=== PATIENT | female | born 1940 | race Caucasian/White ===

== ENCOUNTER → 2017-10-28 | Emergency (ER) | payer BC ==
[~2017-10-28] VITALS: Ht 160 cm; Wt 73.9 kg
[~2017-10-28] MED LIST: AMLODIPINE BESY10 MG PO; AUGMENTIN 875-1 EACH PO; BP MED; CARVEDILOL3.125 MG PO; DOXAZOSIN MESYLA1 MG PO; ESGIC 50-325-41 EACH PO; EVOXAC30 MG PO; NEXIUM 24HR20 M1 PO; NEXIUM20 MG PO; PERCOCET 5-3251 EACH PO; POTASSIUM CHLO10 MEQ PO; PRILOSEC20 MG PO; TRAMADOL HCL50 MG PO; TRIAMTERENE-HC1 EAC1 PO
--- NOTE | 2017-10-28 13:38 | EKG ---
[facility] [address] [facility] [place] [address] Signed Normal sinus rhythm Normal ECG No previous ECGs available Confirmed by YAN JOHNSON MD ([id number]) on 10/28/2017 1:38:35 PM Electronically Signed By: YAN JOHNSON MD 10/28/17 1338 PATIENT NAME: ADELSO GREER Electrocardiogram DATE OF : 44 PHYSICIAN: YAN JOHNSON MD REPORT #: [id number] REPORT IS CONFIDENTIAL AND NOT TO BE RELEASED WITHOUT AUTHORIZATION
== END ==
LOC: ED 05:20
DX: R07.2 Precordial pain (principal); R10.13 Epigastric pain; E87.6 Hypokalemia; I10 Essential (primary) hypertension; K21.9 Gastro-esophageal reflux disease without esophagitis; Z88.8 Allergy status to other drugs, medicaments and biological substances; Z79.899 Other long term (current) drug therapy; Z79.891 Long term (current) use of opiate analgesic
CPT/HCPCS: 71010; 80053; 81001; 82550; 82553; 83874; 84484; 85025; 85610; 85730; 93005; 93010; 96361; 96374; 99284; J7030

== ENCOUNTER 2018-04-29 12:00 | Day surgery (SDC) | payer BC ==
[~2018-04-29] VITALS: Ht 157.5 cm; Wt 76.2 kg
--- NOTE | ~2018-04-29 | OR ---
[facility] [address] [place], [place] [address] Draft DATE OF OPERATION: 04/29/2018 SURGEON: Ritchie Marr MD PREOPERATIVE DIAGNOSES: 1. History of tubular adenoma, 2015. 2. Dark stool without overt bleeding. POSTOPERATIVE DIAGNOSIS: 1. Sigmoid diverticulosis. 2. Polyp at 20 cm (excised). PROCEDURE: Total colonoscopy to cecum with snare polypectomy x1. ANESTHESIA: Intravenous sedation, fentanyl 150 mcg, Versed 7 mg. INDICATION: This 77-year-old white woman is a patient Dr. Tracey Warren. She is known to me from the past. She has undergone colonoscopy in 2014, at which time she was found to have a tubular adenoma. She is recently considered to have "black stool," as well as left lower abdominal pain. She was empirically treated with Flagyl, and Cipro by me in the preceding month, but was intolerant of those medication, and therefore did not take more than a dose or two. She has no left lower abdominal pain at this time. She is here to undergo colonoscopy on the basis of presumed rectal bleeding, and left lower abdominal pain, as well as history of polyp in 2014. She understands the risks of bleeding, infection, and perforation, and wished to proceed. FINDINGS: Complete colonoscopy was undertaken to the cecum without question. The bowel prep was adequate. There were diverticula of the sigmoid. There was a small sessile polyp at 20 cm, which was excised with hot snare polypectomy technique without problem. Remaining colon was normal. PROCEDURE: The patient was brought to the endoscopy suite, and placed in lateral decubitus position, given intravenous sedation to the point of slurred speech and nystagmus. Digital rectal examination was normal. PATIENT NAME: ADELSO GREER OPERATIVE REPORT DATE OF : 44 REPORT #: [id number] PHYSICIAN: RITCHIE MARR MD PCP: CRISTA BOSWELL DO REPORT IS CONFIDENTIAL AND NOT TO BE RELEASED WITHOUT AUTHORIZATION [facility] [address] [place], [place] [address] Draft An Olympus video colonoscope was passed in the rectum, and manipulated throughout the colon ultimately visualizing well the ileocecal valve and appendiceal orifice. Irrigation was undertaken as needed. The scope was then withdrawn from that point. Examination undertaken showed no sign of abnormality until the sigmoid in left colon where diverticulosis was once again seen. At 20 cm from the anal verge was a sessile polyp. Narrow band imaging confirmed likely to be an adenoma. This was excised with hot snare polypectomy technique without problem and passed for permanent pathology. Further withdrawal of scope allowed for retroflexed view of the rectum, which was essentially normal. Scope was removed and the patient was taken to recovery room in good condition. CONCLUDING DIAGNOSES: 1. Sigmoid diverticulosis. 2. Probable adenomatous polyp at 20 cm. PLAN: Repeat colonoscopy in 3 years based on the polyp. Maintain high-fiber diet regarding diverticulosis. MD PAYTON Montes De Oca/LEON /[id number] cc: Tracey Warren MD Copies: TRACEY WARREN MD ~ PATIENT NAME: ZOEYADELSO OPERATIVE REPORT DATE OF : 44 REPORT #: [id number] PHYSICIAN: RITCHIE MARR MD PCP: CRISTA BOSWELL DO REPORT IS CONFIDENTIAL AND NOT TO BE RELEASED WITHOUT AUTHORIZATION
[~2018-04-29 12:00] MED LIST changes: +ARICEPT5 MG PO; +CELEBREX200 MG; +VENTOLIN HFA18 GM INH
--- NOTE | 2018-04-29 13:28 | NUR ---
04/29/18 Rosy8 Chelsy Jesus 1323 PT ARRIVED TO PACU, RESP EVEN AND UNLABORED ON 3L NC. PT REACTIVE AND BACK TO SLEEP.
== END 2018-04-29 14:23 | disposition home or self-care (01) ==
LOC: OPS 12:00 → DS 12:00 → OPS 13:00
PROVIDERS: Surgery
PROC: 0DBE8ZZ Excision of Large Intestine, Via Natural or Artificial Opening Endoscopic (ICD-10-PCS; principal; 2018-04-29 13:00)
DX: D12.6 Benign neoplasm of colon, unspecified (principal); K57.30 Diverticulosis of large intestine without perforation or abscess without bleeding; F32.9 Major depressive disorder, single episode, unspecified; K21.9 Gastro-esophageal reflux disease without esophagitis; E78.5 Hyperlipidemia, unspecified; I10 Essential (primary) hypertension; M35.00 Sjogren syndrome, unspecified; M19.90 Unspecified osteoarthritis, unspecified site; K21.0 Gastro-esophageal reflux disease with esophagitis; Z86.010 Personal history of colon polyps; Z88.1 Allergy status to other antibiotic agents; Z98.890 Other specified postprocedural states
CPT/HCPCS: 99153; G0500; J2250; J3010; J7120

== ENCOUNTER 2019-03-16 10:03 | Emergency (ER) | payer BC ==
[~2019-03-16] VITALS: Ht 157.5 cm; Wt 76.2 kg
--- OUTSIDE RECORDS SUMMARY | ~2019-03-16 | XMS | Clinical Summary ---
Demographics + + + | Address | [address] | | | [place] [address] | + + + | Home Phone | | + + + | Preferred Language | Unknown | + + + | Marital Status | | + + + | Advent Affiliation | Unknown | + + + | Race | Unknown | + + + | Ethnic Group | Unknown | + + + Author + + + | Author | [facility] | + + + | Organization | [facility] [facility] | + + + | Address | Unknown | + + + | Phone | Unavailable | + + + Support + + +---------+ + | Name | Relationship | Address | Phone | + + +---------+ + | Kymberly Granado | ECON | Unknown | | + + +---------+ + Care Team Providers + +------+ + | Care Care Associate Name | Role | Phone | + +------+ + | Yahir Warren MD | PP | Unavailable | + +------+ + Allergies No Known Allergies Current Medications + + +-------+---------+------+------+-------+ | Prescription | Sig. | Disp. | Refills | Star | End | Statu | | | | | | t | Date | s | | | | | | Date | | | + + +-------+---------+------+------+-------+ | esomeprazole | Take 40 mg by mouth | | | | | Activ | | (NEXIUM) 40 MG | every morning before | | | | | e | | capsule | breakfast. | | | | | | + + +-------+---------+------+------+-------+ | amLODIPine | Take 10 mg by mouth | | | | | Activ | | (NORVASC) 10 MG | daily. | | | | | e | | tablet | | | | | | | + + +-------+---------+------+------+-------+ | | Take 1 tablet by | | | | | Activ | | triamterene-hydrochl | mouth daily. | | | | | e | | orothiazide | | | | | | | | (MAXZIDE-25) 37.5-25 | | | | | | | | MG per tablet | | | | | | | + + +-------+---------+------+------+-------+ | traMADol (ULTRAM) | Take 50 mg by mouth | | | | | Activ | | 50 MG tablet | every 8 (eight) | | | | | e | | | hours as needed for | | | | | | | | Pain. | | | | | | + + +-------+---------+------+------+-------+ | carvedilol (COREG) | Take 3.125 mg by | | | | | Activ | | 3.125 MG tablet | mouth 2 (two) times | | | | | e | | | daily with meals. | | | | | | + + +-------+---------+------+------+-------+ | doxazosin | Take 2 mg by mouth | | | | | Activ | | (CARDURA) 2 MG | nightly. | | | | | e | | tablet | | | | | | | + + +-------+---------+------+------+-------+ | cevimeline | Take 30 mg by mouth | | | | | Activ | | (EVOXAC) 30 MG | 3 (three) times | | | | | e | | capsule | daily. | | | | | | + + +-------+---------+------+------+-------+ | | Take 1 capsule by | | | | | Activ | | butalbital-acetamino | mouth every 4 (four) | | | | | e | | phen-caffeine | hours as needed for | | | | | | | (FIORICET WITH | Headaches. | | | | | | | CODEINE) | | | | | | | | [id number] MG per | | | | | | | | capsule | | | | | | | + + +-------+---------+------+------+-------+ Active Problems + + + | Problem | Noted Date | + + + | HTN (hypertension) | 02/27/2015 | + + + + + | Last Assessment & Plan: Hypertension, controlled, continue | | current meds. | + + +---------+ + | Syncope | 02/24/2015 | +---------+ + + + | Last Assessment & Plan: Syncope, first episode. | | 74yo HF, with only one syncopal episode. She is usually active, | | she was unaware of exercise, but while getting out of car she had | | a very brief episode of what she describes as "blacked out", she | | ended up sitting back in a car, did not fall to ground, but as | | she recalls, there was loss of consciousness. There was no | | incontinence. No prodrome. She was unaware of any chest | | discomfort, shortness of breath, palpitations, nausea, | | diaphoresis. No postictal fatigue. As stated she is usually | | active, there is no prior history of exertional chest discomfort. | | But she does admit a history of" fluttering in her chest, like | | a hummingbird", usually brief and not associated with any | | lightheadedness, no prior syncope. She is unaware of any | | previous history of coronary artery disease, myocardial | | infarction, congestive heart failure, congenital heart disease, | | rheumatic heart disease. ECG is normal. ETT was benign, low | | risk. 24 Holter monitor revealing sinus rhythm, no significant | | tachy or shlomo events. As she has had only one event, no further | | w/u, but if recurrent syncope, will continue w/u.Hx CABG: noHx | | PCI/stent: noHx Pacemaker/ICD: noLast Cath: naLast Echo: Last | | Stress Test, 03/10/2015: 7:09min Wagner, no chest pain, ECG (-) for | | ischemia, frequent PVC's observed.24hr , 03/10/2015: sinsu | | rhythm, 58-98, averaging 69bpm, occ PAC's, rare PVC's, no AVB, no | | ischemia detected.ECG, 02/24/2015: NSR. | + + Family History + +------+ + + | Relation | Name | Status | Comments | + +------+ + + | Father | | | brain aneurysm | | | | (Age | | | | | 73) | | + +------+ + + | Mother | | Alive | 93 yrs. old, Dementia | + +------+ + + Social History + +-------+ +--------+------+ | Tobacco Use | Types | Packs/Day | Years | Date | | | | | Used | | + +-------+ +--------+------+ | Never Smoker | | | | | + +-------+ +--------+------+ + +---+---+---+ | Smokeless Tobacco: | | | | | Never Used | | | | + +---+---+---+ + + +---------+ + | Alcohol Use | Drinks/We | oz/Week | Comments | | | ek | | | + + +---------+ + | No | | | | + + +---------+ + + + + | Sex Assigned at | Date Recorded | | | | + + + | Not on file | | + + + Last Filed Vital Signs + + + + | Vital Sign | Reading | Time Taken | + + + + | Blood Pressure | 114/66 | 03/17/2015 11:17 AM PDT | + + + + | Pulse | 72 | 03/17/2015 11:17 AM PDT | + + + + | Temperature | - | - | + + + + | Respiratory Rate | 16 | 03/17/2015 11:17 AM PDT | + + + + | Oxygen Saturation | 97% | 03/17/2015 11:17 AM PDT | + + + + | Inhaled Oxygen | - | - | | Concentration | | | + + + + | Weight | 74.8 kg (165 lb) | 03/17/2015 11:17 AM PDT | + + + + | Height | 162.6 cm (5' 4") | 03/17/2015 11:17 AM PDT | + + + + | Body Mass Index | 28.32 | 03/17/2015 11:17 AM PDT | + + + + Plan of Treatment + + + + + | Health Maintenance | Due Date | Last Done | Comments | + + + + + | Vaccine: | | | | | Dtap/Tdap/Td (1 - | 1 | | | | Tdap) | | | | + + + + + | Vaccine: Zoster (1 | | | | | of 2) | 2 | | | + + + + + | DEXA SCAN SCREENING | | | | | | 7 | | | + + + + + | Vaccine: | | | | | Pneumococcal 65+ | 7 | | | | Low/Medium Risk (1 | | | | | of 2 - PCV13) | | | | + + + + + | Vaccine: Influenza | | | | | (Season Ended) | 9 | | | + + + + + Results Not on filefrom Last 3 Months Insurance +---------+--------+ +------+-------+ + | Payer | Benefi | Subscriber | Type | Phone | Address | | | t Plan | ID | | | | | | / | | | | | | | Group | | | | | +---------+--------+ +------+-------+ + | PREMERA | PREMER | [id number] | | | [address] [address] | | | [place] | | | | [place] | | | [place] | | | | [phone] | | | FED | | | | | | | PPO | | | | | +---------+--------+ +------+-------+ + + +--------+ +--------+ + + | Guarantor Name | Accoun | Relation to | Date | Phone | Billing Address | | | t Type | Patient | of | | | | | | | | | | + +--------+ +--------+ + + | ADELSO GRANADO | Person | Self [birth year] | Home: | [address] | | | al/Fam | | 1940 | [phone] | [place] | | | [place] | | | [phone] | [phone] | + +--------+ +--------+ + +
--- OUTSIDE RECORDS SUMMARY | ~2019-03-16 | XMS | Clinical Summary ---
Demographics + + + | Address | [address] | | | [place] [address] | + + + | Home Phone | | + + + | Preferred Language | Unknown | + + + | Marital Status | | + + + | Baptism Affiliation | Unknown | + + + | Race | Unknown | + + + | Ethnic Group | Unknown | + + + Author + + + | Author | [facility] [employer] [facility] | + + + | Organization | [facility] [employer] | + + + | Address | Unknown | + + + | Phone | Unavailable | + + + Support + + +---------+ + | Name | Relationship | Address | Phone | + + +---------+ + | Kymberly Granado | ECON | Unknown | | + + +---------+ + Care Team Providers + +------+ + | Care Front Desk Auxiliary Name | Role | Phone | + [...] | | | | | | | [id number] MG per | | | | | [...] +------+-------+ + | PREMERA | PREMER | [id number] | | | [address] [address] | | | [place] | | | | [place] | | | [place] | | | | [phone] | | | FED | | | [...] | [birth year] | Home: | [address] | | | al/Fam | | 1940 | [phone] | [place] | | | [place] | | | [phone] | [phone] | + +--------+ +--------+ + +
--- OUTSIDE RECORDS SUMMARY | ~2019-03-16 | XMS | Clinical Summary ---
Demographics + + + | Address | [address] | | | [place] [address] | + + + | Home Phone | | + + + | Preferred Language | Unknown | + + + | Marital Status | | + + + | Jew Affiliation | Unknown | + + + | Race | Unknown | + + + | Ethnic Group | Unknown | + + + Author + + + | Author | [facility] | | | and [place] | + + + | Organization | [facility] | | | and [place] | + + + | Address | Unknown | + + + | Phone | Unavailable | + + + Support + + + + + | Name | Relationship | Address | Phone | + + + + + | Sher Granado | ECON | [address] | | | | | [place], [place] | | | | | [address] | | + + + + + Care Team Providers + +------+ + | Care Soundscriber Mechanic Name | Role | Phone | + [...] + +---------+------+------+-------+ Active Problems Not on file Social History + +-------+ +--------+------+ | Tobacco Use | Types | Packs/Day | Years | Date | | | | | Used | | + +-------+ +--------+------+ | Never Assessed | | | | | + +-------+ [...] +-------+--------+ +--------+-------+---------+------+ | BCBS | BCBS | [id number] | | | | PPO | | [...] | Self | [birth year] | | [address] | | | al/Fam | | 1940 | [phone] | [place] | | | [place] | | | [place] (Home) | [address] | + +--------+ +--------+ + + Advance Directives Patient has advance care planning documents on file. For more information, please contact:[facility] [place] [address]
--- OUTSIDE RECORDS SUMMARY | ~2019-03-16 | XMS | Clinical Summary ---
Demographics + + + | Address | [address] | | | [place] [address] | + + + | Home Phone | | + + + | Preferred Language | Unknown | + + + | Marital Status | | + + + | Caodaism Affiliation | Unknown | + + + | Race | Unknown | + + + | Ethnic Group | Unknown | + + + Author + + + | Author | [facility] | | | and [place] | + + + | Organization | [facility] | | | and [...] [place], [place] | | | | | [address] | | + + + + + Care Team Providers + +------+ + | Care Chief Estimator Name | Role | Phone | + [...] +-------+--------+ +--------+-------+---------+------+ | BCBS | BCBS | [id number] | | | | PPO | | [...] [place] | | | [address] (Home) | [address] | + +--------+ +--------+ + + Advance Directives Patient has advance care planning documents on file. For more information, please contact:[facility] [place] [address]
--- OUTSIDE RECORDS SUMMARY | 2019-03-16 10:12 | XMS ---
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 EJanice VISIT COUNT (12 MO.) 1 [place] TOTAL 1 NOTE: Visits indicate total known visits. ED/UCC VISIT TRACKING (12 MO.) 03/16/2019 10:03 [place] TYPE: Emergency COMPLAINT: - ABD PAIN INPATIENT VISIT TRACKING (12 MO.) No inpatient visits to display in this time frame [email or web address]
[2019-03-16] MEDS ORDERED: TRAZODONE HCL100 MG PO (16:09)
[2019-03-16] MEDS ORDERED: ESOMEPRAZOLE MA40 MG PO (16:09)
[2019-03-16] MEDS ORDERED: DULOXETINE HCL30 MG PO (16:11)
[2019-03-16] MEDS ORDERED: CARVEDILOL6.25 MG PO (16:11)
[2019-03-16] MEDS ORDERED: BUTALB-ACETAMI1 EAC2 PO (16:12)
--- NOTE | 2019-03-17 13:38 | EKG ---
[facility] [address] [facility] [place] [address] Signed Sinus rhythm with premature supraventricular complexes Otherwise normal ECG When compared with ECG of 28-OCT-2017 05:23, premature supraventricular complexes are now present Confirmed by YAN JOHNSON MD ([id number]) on 03/17/2019 1:38:21 PM Electronically Signed By: YAN JOHNSON MD 03/17/19 1338 PATIENT NAME: ZOEYADELSO Electrocardiogram DATE OF : 44 PHYSICIAN: YAN JOHNSON MD REPORT #: [id number] REPORT IS CONFIDENTIAL AND NOT TO BE RELEASED WITHOUT AUTHORIZATION
== END 2019-03-16 15:47 | disposition home or self-care (01) ==
LOC: ED 10:03
DX: R10.9 Unspecified abdominal pain (principal); I10 Essential (primary) hypertension; K21.9 Gastro-esophageal reflux disease without esophagitis; Z90.710 Acquired absence of both cervix and uterus; Z90.49 Acquired absence of other specified parts of digestive tract; Z88.1 Allergy status to other antibiotic agents; Z88.8 Allergy status to other drugs, medicaments and biological substances; Z91.09 Other allergy status, other than to drugs and biological substances; Z79.899 Other long term (current) drug therapy
CPT/HCPCS: 74177; 80053; 81001; 83690; 85025; 93005; 93010; 99284-25; C9113; J1885; Q9967

== ENCOUNTER 2019-09-02 12:20 | Emergency (ER) | payer BC ==
[~2019-09-02] VITALS: Ht 157.5 cm; Wt 76.2 kg
--- OUTSIDE RECORDS SUMMARY | ~2019-09-02 | XMS | Clinical Summary ---
Demographics + + + | Address | [address] | | | [place] [address] | + + + | Home Phone | | + + + | Preferred Language | Unknown | + + + | Marital Status | | + + + | Adventism Affiliation | Unknown | + + + | Race | Unknown | + + + | Ethnic Group | Unknown | + + + Author + + + | Author | [facility] | | | and [place] | + + + | Organization | [facility] | | | and [place] | + + + | Address | Unknown | + + + | Phone | Unavailable | + + + Support + + + + + | Name | Relationship | Address | Phone | + + + + + | Sher Granado | ECON | [address] | | | | | [place], [place] | | | | | [address] | | + + + + + Care Team Providers + +------+ + | Care Loan Interviewer Name | Role | Phone | + +------+ + | Yahir Warren MD | PCP | Unavailable | + +------+ + Allergies + + + + + + | Active Allergy | Reactions | Severity | Noted | Comments | | | | | Date | | + + + + + + | Ibandronate Sodium | | | 11/30/19 | | | | | | 11 | | + + + + + + Medications + + + +---------+------+------+-------+ | Medication | Sig | Dispensed | Refills | Star | End | Statu | | | | | | t | Date | s | | | | | | Date | | | + + + +---------+------+------+-------+ | esomeprazole | Take 40 mg by mouth | | 0 | 09/1 | | Activ | | (NEXIUM) 40 MG | 2 times daily. | | | 2/20 | | e | | packet | | | | 12 | | | + + + +---------+------+------+-------+ | rosuvastatin | Take 10 mg by mouth | | 0 | 09/1 | | Activ | | (CRESTOR) 10 mg | nightly. | | | 2/20 | | e | | tablet | | | | 12 | | | + + + +---------+------+------+-------+ | | Take 37.5-25 mg by | | 0 | 09/1 | | Activ | | triamterene-hydrochl | mouth Daily. | | | 2/20 | | e | | orothiazide | | | | 12 | | | | (MAXZIDE-25) 37.5-25 | | | | | | | | mg per tablet | | | | | | | + + + +---------+------+------+-------+ | Calcium | TABS; one by mouth | | 0 | 09/1 | | Activ | | Carbonate-Vitamin D | daily | | | 2/20 | | e | | (CALCIUM + D PO) | | | | 12 | | | + + + +---------+------+------+-------+ | | 1-2 as needed | | 0 | 09/1 | | Activ | | butalbital-acetamino | | | | 2/20 | | e | | phen-caffeine | | | | 12 | | | | (FIORICET) per | | | | | | | | tablet | | | | | | | + + + +---------+------+------+-------+ | diltiazem (TAZTIA | Take 300 mg by mouth | | 0 | 09/1 | | Activ | | XT) 300 MG 24 hr | Daily. | | | 2/20 | | e | | capsule | | | | 12 | | | + + + +---------+------+------+-------+ | EPINEPHrine | as needed | | 0 | 09/1 | | Activ | | (EPIPEN) 0.3 mg/0.3 | | | | 2/20 | | e | | mL JOHNY | | | | 12 | | | + + + +---------+------+------+-------+ | cevimeline | Take 30 mg by mouth | | 0 | 09/1 | | Activ | | (EVOXAC) 30 mg | 2 times daily. | | | 2/20 | | e | | capsule | | | | 12 | | | + + + +---------+------+------+-------+ Active Problems Not on file Family History + +------+ + + | [...] | | | + +-------+ +--------+------+ + + + | Sex Assigned at | Date Recorded | | | | + + + | Not on file | | + + + + + + + | Job Start Date | Occupation | Industry | + + + + | Not on file | Not on file | Not on file | + + + + + + + + | Travel History | Travel Start | Travel End | + + + + + + | No recent travel history available. | + + Last Filed Vital Signs + + + + | Vital Sign | Reading | Time Taken | + + + + | Blood Pressure | 130/90 | 11/30/2010 0000 PST | + + + + | Pulse | - | - | + + + + | Temperature | - | - | + + + + | Respiratory Rate | - | - | + + + + | Oxygen Saturation | - | - | + + + + | Inhaled Oxygen | - | - | | Concentration | | | + + + + | Weight | 76.2 kg (168 lb) | 11/30/2010 0000 PST | + + + + | Height | 160 cm (5' 3") | 11/30/2010 0000 PST | + + + + | Body Mass Index | 29.76 | 11/30/2010 0000 PST | + + + + Plan of [...] | + + + + + | Breast Cancer | | | | | Screening | 7 | | | + + + + + | Vaccine: | | | | | Pneumococcal 65+ | 7 | | | | Low/Medium Risk (1 | | | | | of 2 - PCV13) | | | | + + + + + | Vaccine: Influenza | | | | | (#1) | 9 | | | + + + + + Results Not on filefrom Last 3 Months Insurance +-------+--------+ +--------+-------+---------+------+ | Payer | Benefi | Subscriber | Effect | Phone | Address | Type | | | t Plan | ID | franck | | | | | | / | | Dates | | | | | | Group | | | | | | +-------+--------+ +--------+-------+---------+------+ | BCBS | BCBS | [id number] | | | | PPO | | | [place] | | [phone] | | | | | | L FEP | | esent | | | | +-------+--------+ +--------+-------+---------+------+ + +--------+ +--------+ + + | Guarantor Name | Accoun | Relation to | Date | Phone | Billing Address | | | t Type | Patient | of | | | | | | | | | | + +--------+ +--------+ + + | Victorina Granado | Person | Self [birth year] | | [address] | | | al/Fam | | 1940 | [phone] | [place] | | | [place] | | | [address] (Home) | [address] | + +--------+ +--------+ + + Advance Directives Patient has advance care planning documents on file. For more information, please contact:[facility] [employer] [facility] [place] [address]
--- OUTSIDE RECORDS SUMMARY | ~2019-09-02 | XMS | Clinical Summary ---
Demographics + + + | Address | [address] | | | [place] [address] | + + + | Home Phone | | + + + | Preferred Language | Unknown | + + + | Marital Status | | + + + | Restorationist Affiliation | Unknown | + + + | Race | Unknown | + + + | Ethnic Group | Unknown | + + + Author + + + | Author | [facility] (Historical as of | | | 06-27-19) | + + + | Organization | [facility] (Historical as of | | | 06-27-19) | + + + | Address | Unknown | + + + | Phone | Unavailable | + + + Support + + +---------+ + | Name | Relationship | Address | Phone | + + +---------+ + | La Salle,Terryel | ECON | Unknown | | + + +---------+ + Care Team Providers + +------+ + | Care Fairground Operator Name | Role | Phone | + [...] | | | | | | | [phone] MG per | | | | | [...] +------+-------+ + | PREMERA | PREMER | [id number] | | | [address] [address] | | | [place] | | | | [place] | | | [place] | | | | [id number] | | | FED | | | [...] Self | [birth year] | Home: | [address] | | | al/Fam | | 1940 | [phone] | [place] | | | [place] | | | [phone] | [phone] | + +--------+ +--------+ + +
--- OUTSIDE RECORDS SUMMARY | ~2019-09-02 | XMS | Clinical Summary ---
Demographics + + + | Address | [address] | | | [place] [address] | + + + | Home Phone | | + + + | Preferred Language | Unknown | + + + | Marital Status | | + + + | Synagogue Affiliation | Unknown | + + + | Race | Unknown | + + + | Ethnic Group | Unknown | + + + Author + + + | Author | [facility] | | | and [place] | + + + | Organization | [facility] | | | and [place] | + + + | Address | Unknown | + + + | Phone | Unavailable | + + + Support + + + + + | Name | Relationship | Address | Phone | + + + + + | Sher Granado | ECON | [address] | | | | | [place], [place] | | | | | [address] | | + + + + + Care Team Providers + +------+ + | Care Associate Professor Of Biblical Studies Name | Role | Phone | + [...] +-------+--------+ +--------+-------+---------+------+ | BCBS | BCBS | [id number] | | | | PPO | | [...] Self | [birth year] | | [address] [facility] | | | al/Fam | | 1940 | [phone] | [place] | | | [place] | | | [address] (Home) | [phone] | + +--------+ +--------+ + + Advance Directives Patient has advance care planning documents on file. For more information, please contact:[facility] [employer] [facility] [place] [address]
--- OUTSIDE RECORDS SUMMARY | ~2019-09-02 | XMS | Clinical Summary ---
Demographics + + + | Address | [address] | | | [place] [address] | + + + | Home Phone | | + + + | Preferred Language | Unknown | + + + | Marital Status | | + + + | Mu-Ism Affiliation | Unknown | + + + | Race | Unknown | + + + | Ethnic Group | Unknown | + + + Author + + + | Author | [facility] (Historical as of | | | 06-27-19) | + + + | Organization | [facility] (Historical as of | | | 06-27-19) | + + + | Address | Unknown | + + + | Phone | Unavailable | + + + Support + + +---------+ + | Name | Relationship | Address | Phone | + + +---------+ + | Nicasio,Terryel | ECON | Unknown | | + + +---------+ + Care Team Providers + +------+ + | Care Cash Applications Specialist Name | Role | Phone | + [...] | | | | | | | [phone] MG per | | | | | [...] +------+-------+ + | PREMERA | PREMER | [id number] | | | [address] [address] | | | [place] | | | | [place] | | | [place] | | | | [phone] | | | FED | | | [...] Self | [birth year] | Home: | [address] | | | al/Fam | | 1940 | [phone] | [place] | | | [place] | | | [phone] | [phone] | + +--------+ +--------+ + +
[~2019-09-02 12:20] MED LIST changes: +BUTALB-ACETAMI1 EAC2 PO; +CARVEDILOL6.25 MG PO; +DULOXETINE HCL30 MG PO; +ESOMEPRAZOLE MA40 MG PO; +TRAZODONE HCL100 MG PO
--- OUTSIDE RECORDS SUMMARY | 2019-09-02 12:22 | XMS ---
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 Care History Medical/Surgical 03/17/2019 [facility] - Patient is currently established with [facility]. If patient is seen in the ED during business hours. Please contact [facility] at [facility]. Care Recommendation: This patient has had 5 or more Emergency Department visits in the last 12 months.\T\nbsp; Patient requires education on the scope and purpose of the ED as an acute care provider not a Primary Care Provider and should not be utilized for chronic conditions.\T\nbsp; These are guidelines and the provider should exercise clinical judgment when providing care. E.D. VISIT COUNT (12 MO.) 2 [place] TOTAL 2 NOTE: Visits indicate total known visits. 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
[2019-09-02] MEDS ORDERED: NEOSPORIN OIN28.3 GM TD (14:46)
== END 2019-09-02 15:20 | disposition home or self-care (01) ==
LOC: ED 12:20
DX: S02.2XXA Fracture of nasal bones, initial encounter for closed fracture (principal); W01.198A Fall on same level from slipping, tripping and stumbling with subsequent striking against other object, initial encounter; I10 Essential (primary) hypertension; K21.9 Gastro-esophageal reflux disease without esophagitis; Z88.8 Allergy status to other drugs, medicaments and biological substances; Z91.048 Other nonmedicinal substance allergy status; Z79.899 Other long term (current) drug therapy; Z79.891 Long term (current) use of opiate analgesic
CPT/HCPCS: 70450; 70486; 72125; 73110; 99284-25

== ENCOUNTER 2024-08-24 09:38 | Emergency (ER) | payer BC ==
[~2024-08-24] VITALS: Ht 157.5 cm; Wt 77.5 kg
[~2024-08-24 09:38] MED LIST changes: +NEOSPORIN OIN28.3 GM TD
[2024-08-24] MEDS ORDERED: NEURONTIN300 MG PO (10:11)
[2024-08-24 10:32] LABS: BILIRUBIN, URINE NEGATIVE (negative); BLOOD/HGB, URINE NEGATIVE (Negative); KETONE, URINE NEGATIVE (Negative); LEUK ESTERASE, URINE NEGATIVE (negative); NITRITE, URINE NEGATIVE (negative); PH, URINE 5.5 (5-7)
[2024-08-24] MEDS ORDERED: ondansetron HCL 4 MG/2 ML VIAL IV ONE (10:45)
[2024-08-24] MEDS ORDERED: HYDROmorphone HCL 1 MG/ML SYR IV ONE (10:45)
[2024-08-24 10:46] LABS: BASOPHILS 0.3 % (0-2); HEMATOCRIT 41.4 % (35.0-50.0); LYMPHOCYTES 12.6 % (24-44); MCH 27.8 (27-36); MCHC 33.8 g/dl (30-36); MCV 82.5 fl (81-99); MONOCYTES 3.7 % (0-12); NEUTROPHILS 83.4 % (39-80); PLATELET COUNT 180 K/uL (140-440); RBC 5.02 M/ul (4.3-5.7); RDW 14.9 (10.5-15.0)
[2024-08-24] MEDS ORDERED: METFORMIN HCL500 MG PO (10:58)
[2024-08-24] MEDS ORDERED: ATORVASTATIN CA10 MG PO (10:59)
[2024-08-24] MEDS ORDERED: JARDIANCE10 MG PO (10:59)
[2024-08-24] MEDS ORDERED: COZAAR25 MG PO (11:00)
[2024-08-24 11:03] LABS: ALBUMIN 3.4 g/dL (3.4-5.0); ALBUMIN/GLOBULIN RATIO 0.85 (1.1-2.4); ANION GAP 13.4 (7-21); BILIRUBIN, TOTAL 0.6 ng/dL (0.2-1.0); BUN/CREATININE RATIO 29.09 (6.0-28.6); CREATININE, SERUM 1.1 mg/dL (0.55-1.02); POTASSIUM 3.4 mmol/L (3.5-5.1); PROTEIN, TOTAL 7.4 g/dL (6.4-8.2)
[2024-08-24] MEDS ORDERED: GABAPENTIN 300 MG CAP PO ONE (12:30)
[2024-08-24] MEDS ORDERED: PERCOCET 5-3251 EACH PO (13:34)
[2024-08-24 13:38] VITALS: BP 139/82
[2024-08-24] MEDS ORDERED: GABAPENTIN300 MG PO (22:54)
== END 2024-08-24 13:38 | disposition home or self-care (01) ==
LOC: ED 09:38
PROVIDERS: Emergency Medicine
DX: R10.31 Right lower quadrant pain (principal); R10.32 Left lower quadrant pain; N20.0 Calculus of kidney; K57.30 Diverticulosis of large intestine without perforation or abscess without bleeding; N28.9 Disorder of kidney and ureter, unspecified; K44.9 Diaphragmatic hernia without obstruction or gangrene; R91.8 Other nonspecific abnormal finding of lung field; I10 Essential (primary) hypertension; M35.00 Sjogren syndrome, unspecified; K21.9 Gastro-esophageal reflux disease without esophagitis; Z88.8 Allergy status to other drugs, medicaments and biological substances; Z91.048 Other nonmedicinal substance allergy status; Z79.84 Long term (current) use of oral hypoglycemic drugs; Z79.899 Other long term (current) drug therapy
CPT/HCPCS: 36415; 51701; 74176; 80053; 81003; 83690; 85025; 99284-25; A9270